=== PATIENT | male | born 1965 | race Caucasian/White ===

== ENCOUNTER 2022-02-06 19:09 | Emergency (ER) | payer MEDICARE ==
[~2022-02-06] VITALS: Ht 175.3 cm; Wt 79.5 kg
[~2022-02-06 19:09] MED LIST: ASPI-1264 PO; ATOR20TA PO; CLOP75TA15 PO; LOP25T PO; NO HOME MEDS
[2022-02-06 19:23] VITALS: BP 134/81
[2022-02-06 20:01] LABS: BASOPHILS % (AUTO) 0.5 % (0-1); EOSINOPHILS # (AUTO) 0.1 X10'3 (0-0.9); EOSINOPHILS % (AUTO) 1.6 % (0-6); HEMATOCRIT 38.6 % (42.0-52.0); HEMOGLOBIN 12.9 g/dl (14.0-17.9); LYMPHOCYTES # (AUTO) 2.9 X10'3 (1.1-4.8); LYMPHOCYTES % (AUTO) 32.2 % (21-51); MEAN CORPUSCULAR HEMOGLOBIN 30.4 PG (27.0-31.0); MEAN CORPUSCULAR HGB CONC 33.3 g/dL (33.0-36.5); MEAN CORPUSCULAR VOLUME 91.3 FL (78-98); MEAN PLATELET VOLUME 8.2 FL (7.4-10.4); MONOCYTES # (AUTO) 1.1 X10'3 (0-0.9); MONOCYTES % (AUTO) 12.4 % (2-12); NEUTROPHILS # (AUTO) 4.8 X10'3 (1.8-7.7); NEUTROPHILS % (AUTO) 53.3 % (42-75); PLATELET COUNT 340 X10'3 (140-440); RED BLOOD COUNT 4.23 X10'6 (4.70-6.10); RED CELL DISTRIBUTION WIDTH 12.6 % (11.5-14.5)
[2022-02-06 20:16] LABS: ALANINE AMINOTRANSFERASE 27 U/L (12-78); ALBUMIN 3.2 G/DL (3.4-5.0); ALBUMIN/GLOBULIN RATIO 0.9 (1.1-1.5); ALKALINE PHOSPHATASE 71 IU/L (46-116); ANION GAP 9 (8-16); ASPARTATE AMINO TRANSFERASE 21 U/L (10-37); BILIRUBIN,TOTAL 0.2 MG/DL (0.1-1.0); BLOOD UREA NITROGEN 39 MG/DL (7-18); BUN/CREATININE RATIO 27.3 (5.4-32.0); CALCIUM 8.5 MG/DL (8.5-10.1); CHLORIDE 103 MMOL/L (99-107); CREATININE 1.43 MG/DL (0.60-1.10); GLUCOSE 106 MG/DL (70-104); LIPASE 85 U/L (73-393); POTASSIUM 4.2 MMOL/L (3.5-5.1); SODIUM 140 MMOL/L (135-145); TOTAL CARBON DIOXIDE 28.4 MMOL/L (24-32); TOTAL PROTEIN 6.7 G/DL (6.4-8.2); eGFR 51 ML/MIN
[2022-02-07] MEDS ORDERED: midazolam 100mg in NS 100ml 100 ML IV PRN (01:00)
[2022-02-07] MEDS ORDERED: FENTANYL-0.9 % NACL/PF 100 ML IV PRN (01:00)
== END 2022-02-07 02:35 | disposition left against medical advice (07) ==
LOC: ER 19:11
DX: R53.1 Weakness (principal); I10 Essential (primary) hypertension; J44.9 Chronic obstructive pulmonary disease, unspecified; R42 Dizziness and giddiness; F17.200 Nicotine dependence, unspecified, uncomplicated; F15.20 Other stimulant dependence, uncomplicated
CPT/HCPCS: 36415; 80053; 83690; 85025; 99283

== ENCOUNTER 2024-11-28 19:46 | Emergency (ER) | payer MEDICARE ==
[~2024-11-28] VITALS: Ht 175.3 cm; Wt 79.5 kg
[2024-11-28 20:14] LABS: MEAN PLATELET VOLUME 7.9 FL (7.4-10.4); RED CELL DISTRIBUTION WIDTH 13.4 % (11.5-14.5)
--- NOTE | 2024-11-28 20:33 | Physician Documentation ---
History of Present Illness ~ Chief Complaint: Abdominal Pain Stated Complaint: ABDOMINAL PAIN Time Seen by MD: 20:31 HPI Patient presents to the emergency room for evaluation of abdominal pain since yesterday. Symptoms are intermittent sharp in nature. History of reflux. Positive nausea without vomiting. Mild diarrhea. Patient reports that he has similar symptoms about a year ago which resolved spontaneously. He has taken nothing for his pain/discomfort. No prior abdominal surgeries. History of coronary artery disease Medication Reconciliation Allergies: Coded Allergies: No Known Allergies (Unverified , 11/28/24) Scheduled Aspirin* (Aspirin*), 1 TABLET PO DAILY Atorvastatin Calcium (Lipitor), 1 TAB PO HS Clopidogrel Bisulfate (Plavix), 75 MG PO DAILY Metoprolol Tartrate* (Lopressor tablet*), 1 TAB PO Q12H Miscellaneous Medications Home Med List (No Home Medications), (Reported) Past Medical History Past Medical History: Coronary Artery Disease, Hypertension, Myocardial Infarction Other Past Surgical History: stent placement, 2015 Patient History: (COPD) Chronic obstructive lung disease MOTHER ([place]) Myocardial infarction FATHER, , Age: 67, Cause: Heart attack Alcohol Use: Occasionally Drug Use: methamphetamine Lives In: Home Review of Systems ROS All review of systems negative except as per HPI Physical Exam Vital Signs: Temperature: 98.4, Source: Oral, Heart Rate: 96, Respiratory Rate: 15, BP: 116/76, Pulse Oximetry: 94, Weight: 79.550 Oxygen Flow Rate: 0 Physical Exam General: Patient is awake, alert, oriented x4 in no acute distress and well ap pearing.~ Head: Normocephalic and atraumatic. Eyes: Conjunctival normal. EOMI. PERRL. ENT: Mucous membranes moist. Neck: Supple, trachea is midline. Chest: Clear to auscultation bilaterally without rales, rhonchi, or wheezes. There is no accessory muscle use or retractions. Cardiac: RRR without murmurs, gallops, or rubs. Abd: Soft, nondistended, nontender, with normoactive bowel sounds. No guarding, rebound, or rigidity. Progress Results/Orders Results/Orders Orders - QUANG ZEPEDA MD Urinalysis, Cult If Indicated (11/28/24 19:51) Straight Cath For Urine Sample (11/28/24 19:51) Ct Abdomen Pelvis (11/28/24 20:45) Completed Orders - QUANG ZEPEDA MD Cbc/Diff (11/28/24 19:51) BMP (11/28/24 19:51) Lipase (11/28/24 19:51) CMP (11/28/24 19:51) Ct Abdomen Pelvis (11/28/24 20:45) Vital Signs 11/28/24 19:47 Temp 98.4 Pulse 96 Resp 15 B/P (MAP) 116/76 Pulse Ox 94 O2 Flow Rate 0 Laboratory Tests Test 11/28/24 20:00 White Blood Count 10.6 Red Blood Count 5.22 Hemoglobin 15.9 Hematocrit 47.1 Mean Corpuscular Volume 90.4 Mean Corpuscular Hemoglobin 30.4 Mean Corpuscular Hemoglobin Concent 33.6 Red Cell Distribution Width 13.4 Platelet Count 435 Mean Platelet Volume 7.9 Neutrophils (%) (Auto) 77.7 H Lymphocytes (%) (Auto) 15.4 L Monocytes (%) (Auto) 6.3 Eosinophils (%) (Auto) 0 Basophils (%) (Auto) 0.6 Neutrophils # (Auto) 8.2 H Lymphocytes # (Auto) 1.6 Monocytes # (Auto) 0.7 Eosinophils # (Auto) 0.0 Basophils # (Auto) 0.1 CBC Comment Sodium Level 134 L Potassium Level 3.6 Chloride Level 98 L Carbon Dioxide Level 27.5 Anion Gap 9 Blood Urea Nitrogen 25 H Creatinine 1.83 H Estimated GFR/1.73 m2 38 BUN/Creatinine Ratio 13.7 Glucose Level 147 H Calcium Level 9.0 Total Bilirubin 0.5 Aspartate Amino Transf (AST/SGOT) 16 Alanine Aminotransferase (ALT/SGPT) 23 Alkaline Phosphatase 83 Total Protein 7.7 Albumin 3.7 Globulin 4.0 Albumin/Globulin Ratio 0.9 L Lipase 23 Chemistry Comments Medical Decision Making Findings Patient presents to the emergency room with some mild intermittent abdominal pain some diarrhea. Differentials include but are not limited to diverticulitis pancreatitis cholecystitis appendicitis therefore emergent labs and imaging indicated. Labs were reassuring. CT scan shows some colitis consistent with the patient's report of diarrhea. Conservative management discussed. Departure Disposition: HOME / SELF CARE / HOMELESS Impression: Primary Impression: Colitis Condition: Stable Discharge Instructions: Colitis Referrals: NO PRIMARY CARE PROVIDER (PCP) Education Educated: Patient Educated regarding: diagnosis, need for follow up Signature Scribe Signature: No scribe Attestation: The note accurately reflects work and decisions made by me.Quang Zepeda MD 11/28/24 21:32 QUANG ZEPEDA MD Nov 28, 2024 20:33
[2024-11-28 20:35] LABS: CREATININE 1.83 MG/DL (0.60-1.10); TOTAL CARBON DIOXIDE 27.5 MMOL/L (24-32); eCRCL 43 ML/MIN; eGFR 38 ML/MIN
--- NOTE | 2024-11-28 21:21 | RADIOLOGY REPORT ---
Exam: CT CT ABDOMEN PELVIS History: abd pain Comparison Study: None Technique: Multidetector spiral CT of the abdomen was performed from lung bases to pubic symphysis. Imaging was performed without IV contrast. Axial, coronal and sagittal multiplanar reformats were ob tained from the axial data set by the technologist. Radiation Dose : 1. Abdomen/Pelvis: CTDIvol 15.2 mGy, DLP 781 mGy*cm. Findings: Evaluation of solid organs is limited due to lack of intravenous contrast use. Lung Bases: No acute or significant lung base finding. Normal heart size. No pleural or pericardial effusion. Liver: The liver is normal in size. No focal lesions. Gallbladder and Biliary Tree: Unremarkable Spleen: Unremarkable Pancreas: The pancreas is grossly normal in appearance. Adrenal Glands: Unremarkable Kidneys: Kidneys are grossly normal without calculi or hydronephrosis. Bladder: Grossly unremarkable for degree of distention. Bowel: The stomach is grossly normal in appearance. No obstruction. Minimal wall thickening of the d istal colonic may reflect underdistention versus mild colitis. Scattered colonic diverticula. Joy l appendix is visualized in the right lower quadrant without findings of appendicitis. Ascites: Absent Lymphadenopathy: No mesenteric, retroperitoneal or periportal lymphadenopathy. Abdominal Wall and Mesentery: Unremarkable. Vasculature: The visualized abdominal aorta is normal in size and caliber. Evaluation of abdominal a nd pelvic vessels is limited due to lack of intravenous contrast. Pelvic Organs: Unremarkable Musculoskeletal: No aggressive focal bony lesions, acute fractures or dislocation. IMPRESSION: 1. Minimal wall thickening of the distal colonic may reflect underdistention versus mild colitis. Radiation optimization: All CT scans at this facility use at least one of these dose optimization zakia hniques: automated exposure control mA and/or kV adjustment per patient size (includes targeted exam s where dose is matched to clinical indication) or iterative reconstruction.
[2024-11-28 21:47] VITALS: BP 115/74; PULSE 94; RESP 18; TEMP 98.6; O2SAT 99
== END 2024-11-28 21:48 | disposition home or self-care (01) ==
LOC: ER 19:46
DX: K52.9 Noninfective gastroenteritis and colitis, unspecified (principal); I10 Essential (primary) hypertension; I25.10 Atherosclerotic heart disease of native coronary artery without angina pectoris; I25.2 Old myocardial infarction; J44.9 Chronic obstructive pulmonary disease, unspecified; F15.90 Other stimulant use, unspecified, uncomplicated; Z79.82 Long term (current) use of aspirin
CPT/HCPCS: 36415; 74176; 80053; 83690; 85025; 99284